=== PATIENT | female | born 1945 | race Caucasian/White ===

== ENCOUNTER 2023-04-03 14:11 | Outpatient (CLI) | payer MEDICARE, BC, SELFPAY | END 2023-04-03 14:12 | disposition home or self-care (01) | PROVIDERS: Visit Provider Family Medicine | DX: M17.12 Unilateral primary osteoarthritis, left knee (principal); M25.562 Pain in left knee | CPT/HCPCS: 64454 ==

== ENCOUNTER 2023-04-24 12:13 | Outpatient (CLI) | payer MEDICARE, BC, SELFPAY | END 2023-04-24 12:14 | disposition home or self-care (01) | LOC: INJ CL 12:14 | PROVIDERS: Visit Provider Family Medicine | DX: M17.12 Unilateral primary osteoarthritis, left knee (principal); G89.29 Other chronic pain; M25.562 Pain in left knee | CPT/HCPCS: 64624; J2250; J3010 ==